=== PATIENT | male | born 1965 | race African-American/Black ===

== ENCOUNTER 2017-05-24 05:18 | Outpatient (CLI) | payer BC, OTHER ==
[2017-05-24 06:36] LABS: BILIRUBIN,TOTAL 0.5 mg/dL (0.2-1.0); CREATININE 1.2 mg/dL (0.6-1.3); POTASSIUM 4.3 mmol/L (3.5-5.1); TOTAL PROTEIN, SERUM 9.7 g/dL (6.4-8.2)
== END 2017-05-24 23:59 | disposition home or self-care (01) ==
LOC: LAB 05:18
DX: E11.9 Type 2 diabetes mellitus without complications (principal)
CPT/HCPCS: 36415